=== PATIENT | male | born 1960 | race Caucasian/White ===

== ENCOUNTER → 2020-04-20 | Outpatient (CLI) | payer MEDICARE ==
--- NOTE | 2020-04-20 17:35 | CARDNUC ---
[place] [address] CARDIAC NUCLEAR IMAGING REPORT Name: LEV PEREZ Room: [facility]#: [id number] Admission: 04/20/20 Attend Phys: Ponce Concepcion, Discharge: Date of : 60 Date of Service: 04/20/20 1734 Report #: [id number] THIS REPORT FOR: cc: John Paul Mtz Steve T. DO Liston, Michael J. MD [facility] ~ APPROVED REPORT Study performed: 04/20/2020 14:22:44 Exam: Nuclear Stress Test Indication: Chest pain radiating to left elbow, jaw, neck, increased dyspnea. Patient Location: Out-Patient Stress Tech: Nola Ortega Stress Nurse: Susan Horn R.N. Ht: 5 ft 8 in Wt: 185 lbs BSA: 1.98 m2 BMI: 28.12 Medical History Medical History: Radiating chest pain to left elbow, jaw and neck, increased dyspnea, orthopnea, PND, multiple back problems, herniated discs (cervical, thoracic, lumbar), DM II, HTN, HLD, former smoker, family HX CAD, HX right knee surgery, uses cane for ambulation as needed. Medications: ASA 325 Mg, Losartan, NTG. Allergies: Blue contrast dye, [place] Oil, Sulfa ABX. Cardiac Risk Factors: Age, DM, FHX of CAD, HTN, Hyperlipidemia, SOB, Past Smoker. Previous Cardiac Procedures: None Pretest Chest Pain Characteristics: No chest pain Exercise History: Indeterminate Physical Disabilities: Chronic back pain/multiple herniated discs, uses cane PRN. Meds Held (24 hrs): NTG - never used. Stress Test Details Stress Test: Exercise stress testing was performed using a Adiel protocol. HR Resting HR: 79 bpm Max Heart Rate (APMHR): 161 bpm Max HR Achieved: 160 bpm Target HR (85% APMHR): 136 bpm % of APMHR: 99 [place] [address] CARDIAC NUCLEAR IMAGING REPORT Name: LEV PREEZ Room: [facility]#: [id number] Admission: 04/20/20 Attend Phys: Ponce Concepcion, Discharge: Date of : 60 Date of Service: 04/20/20 1734 Report #: [id number] Recovery HR: 105 bpm BP Resting BP: 130/97 mmHg Max BP: 184/96 mmHg ECG Resting ECG: Sinus Rhythm Stress ECG: Sinus Tachycardia ST Change: None Arrhythmia: None Recovery ECG: Sinus Rhythm Recovery ST Change: None Recovery Arrhythmia: None Clinical Reason for Termination: Completed protocol, Maximal effort Stress Symptoms: Dyspnea, back pain. Exercise duration: 9 min 17 sec Exercise capacity: 10.58 METs Overall Exercise Capacity for Age: Normal The patient tolerated stress without significant cardiac symptoms. Nurse Comments A 59 year old male presented for a treadmill Nuclear Stress Test. Treadmill tolerated to beginning of stage 4. Recovery unremarkable. Patient was stable and stated he felt good when escorted to Nuclear Medicine for imaging. Exercise capacity - Normal. Stress ECG Conclusion Baseline twelve-lead EKG shows sinus rhythm without significant ST segment or T wave abnormality. EKGs obtained during and post stress show sinus rhythm and sinus tachycardia with no significant ST segment or T wave changes when compared to baseline. There were no stress-induced arrhythmias. NM EXAM: Myocardial Perfusion REST/STRESS Imaging Protocol: Rest Tc-99m/Stress Tc-99m 1 day Resting Data Rest SPECT myocardial perfusion imaging was performed in supine position 30 minutes following the intravenous injection of 10.6 mCi of Tc-99m Sestamibi. Time of rest injection: 13:10 The images were gated to evaluate regional wall [place] [id number] CARDIAC NUCLEAR IMAGING REPORT Name: LEV PEREZ Room: [facility]#: [id number] Admission: 04/20/20 Attend Phys: Ponce Concepcion, Discharge: Date of : 60 Date of Service: 04/20/20 1734 Report #: [id number] left ventricular ejection fraction. Administration Route: IV Administration Site: Right Hand Exercise Stress At peak stress, the patient was injected intravenously with 34.2mCi of Tc-99m Sestamibi. Time of stress injection: 14:40 Administration Route: IV Administration Site: Right Hand Heart Rate at time of stress injection: 160 bpm. Patient continued to exercise for 1 minute(s). Gated Stress SPECT was performed 30 minutes after stress injection. The images were gated to evaluate regional wall motion and calculate left ventricular ejection fraction. Prone imaging was performed. Study Quality Study: Good Artifact: Mild Diaphragmatic artifact Study Data At rest, the left ventricular ejection fraction was 75%.. Post stress, the left ventricular ejection was 70%.. TID = 1.00. Perfusion Perfusion images obtained at rest and post stress in the supine position show mild photopenia in the basal to mid inferior wall that resolves completely with post stress prone imaging consistent with diaphragmatic attenuation artifact. No other significant fixed or reversible defects were identified. Wall Motion Normal left ventricular wall motion. Nuclear Conclusion ECG Findings: negative for ischemia Clinical Findings: negative for ischemia Nuclear Findings: negative for ischemia Exercise Capacity: normal Left Ventricular Function: normal Risk Study: low Perfusion images show no defect to suggest infarct or ischemia. Left ventricular systolic function appears normal on [place] [address] CARDIAC NUCLEAR IMAGING REPORT Name: LEV PEREZ Room: [facility]#: [id number] Admission: 04/20/20 Attend Phys: Ponce Concepcion, Discharge: Date of : 60 Date of Service: 04/20/20 1734 Report #: [id number] is a low risk study. <Conclusion> Baseline twelve-lead EKG shows sinus rhythm without significant ST segment or T wave abnormality. EKGs obtained during and post stress show sinus rhythm and sinus tachycardia with no significant ST segment or T wave changes when compared to baseline. There were no stress-induced arrhythmias. <ELECTRONICALLY SIGNED> By: Brian Ling MD, [facility] 04/20/20 1734 1734 1734 Brian Ling MD, FACC /INF
== END ==
LOC: M.NUC 04-08 10:38
PROVIDERS: ATTEND Internal Medicine
DX: R07.2 Precordial pain (principal)